=== PATIENT | female | born 1960 | race Caucasian/White ===

== ENCOUNTER 2016-12-26 17:14 | Emergency (ER) | payer MEDICARE ==
[~2016-12-26] VITALS: Ht 165.1 cm; Wt 90.4 kg
[~2016-12-26 17:14] MED LIST: FLUO40CA7 PO; LAMO100T7 PO; TOPI25TA37 PO; TRAM50TA4 PO
[2016-12-26 17:16] VITALS: Ht 165.1 cm; Wt 90.4 kg
--- OUTSIDE RECORDS SUMMARY | 2016-12-26 17:18 | XMS REPORT ---
Author Author Kath Rios Organization [employer] Address Unknown Phone Unavailable Care Team Providers Care Industrial Relations Director Name Role Phone Kath Rios CP Unavailable Allergies No Known Allergies Problems Problem Type Condition ICD-9 Code Onset Dates Condition Status Problem COPD 496 Active Assessment Unspecified epilepsy without mention of intractable epilepsy 345.90 Active Problem Lumbago 724.2 Active Medications Medication Code System Code Instructions Start Date End Date Status Dosage Multivitamins [facility] [address]-09 Orally as directed Tramadol HCl [facility] [address]-87 50MG Orally BID January 03, 2015 TAKE ONE TABLET BY MOUTH TWICE DAILY NEEDED FOR PAIN Triamcinolone Acetonide [facility] [address]-44 0.025 % Externally Twice a day November 10, 2013 1 application to affected area ProAir HFA [facility] [address]-36 108 (90 Base) MCG/ACT Inhalation every 4 hrs November 11, 2012 2 puffs as needed Wellbutrin XL [facility] [address]-95 150 MG Orally Once a day 1 tablet in the morning Lamotrigine [facility] [address]-12 200 MG Orally twice a day 1 tablet Albuterol Sulfate HFA [facility] [address]-35 108 (90 Base) MCG/ACT Inhalation every 4 hrs 2 puffs as needed Zoloft [facility] [address]-80 100 MG Orally Once a day 1 tablet Procedures Procedure Coding System Code Date CMP CPT-4 80607 November 22, 2014 Results No Known Results Summary Purpose [employer] Submission
--- OUTSIDE RECORDS SUMMARY | 2016-12-26 17:18 | XMS REPORT ---
Author Cara Duran Organization [employer] Address Unknown Phone Unavailable Care Team Providers Care Poker Machine Attendant Name Role Phone Cara Calero CP Unavailable Allergies, Adverse Reactions, Alerts Substance Reaction Event Type milk Info Not Available Non Drug Allergy Problems Problem Type Condition Code Onset Dates Condition Status Problem COPD 496 Active Problem Depressive disorder, not elsewhere classified F32.9 Active Problem Lumbago 724.2 Active Assessment Major depressive disorder, recurrent, moderate F33.1 Active Assessment Encounter for consultation Z71.9 Active Medications Medication Code System Code Instructions Start Date End Date Status Dosage Tramadol HCl [facility] [address]-73 not defined Multivitamins [facility] [address]-17 Orally as directed Tramadol HCl [facility] [address]-39 50 MG Orally every 6 hrs Jul 03, 2016 1 tablet as needed ProAir HFA [facility] [address]-42 108 (90 Base) MCG/ACT Inhalation every 4 hrs November 11, 2012 2 puffs as needed DuoNeb [facility] [address]-15 0.5-2.5 (3) MG/3ML Inhalation Four times a day December 06, 2014 3 ml Zoloft [facility] [address]-86 100 MG Orally Once a day 1 tablet Aricept [facility] [address]-80 not defined Lamotrigine [facility] [address]-80 200 MG Orally Once a day 1 tablet Results No Known Results Summary Purpose [employer]Works Submission
--- OUTSIDE RECORDS SUMMARY | 2016-12-26 17:18 | XMS REPORT ---
Author Kath Hayden [facility] [employer] Address Unknown Phone Unavailable Care Team Providers Care Fruit Or Nut Farmer Name Role Phone Kath Rios CP Unavailable Allergies, Adverse Reactions, Alerts Substance Reaction Event Type milk Info Not Available Non Drug Allergy Problems Problem Type Condition ICD-9 Code Onset Dates Condition Status Problem COPD 496 Active Assessment Pain in joint, lower leg 719.46 Active Problem Lumbago 724.2 Active Medications Medication Code System Code Instructions Start Date End Date Status Dosage Wellbutrin XL [facility] [address]-99 150 MG Orally Once a day 1 tablet in the morning Triamcinolone Acetonide [facility] [address]-15 0.025 % Externally Twice a day November 10, 2013 1 application to affected area Albuterol Sulfate A [facility] [address]-90 108 (90 Base) MCG/ACT Inhalation every 4 hrs 2 puffs as needed Topamax [facility] [address]-43 25 MG Orally prn tremor not defined Lamotrigine [facility] [address]-35 200 MG Orally Once a day 1 tablet ProAir HFA [facility] [address]-92 108 (90 Base) MCG/ACT Inhalation every 4 hrs November 11, 2012 2 puffs as needed Diclofenac Sodium [facility] [address]-67 50 MG Orally Three times a day JanuaryMarch 29, 2015 1 tablet Tramadol HCl [facility] [address]-44 50MG Orally TID March 29, 2015 take one tablet by mouth twice daily as needed for pain DuoNeb [facility] [address]-69 0.5-2.5 (3) MG/3ML Inhalation Four times a day December 06, 2014 3 ml Multivitamins [facility] [address]-73 Orally as directed Zoloft [facility] [address]-37 100 MG Orally Once a day 1 tablet Procedures Procedure Coding System Code Date OFFICE VISIT, EST-LOW COMPLEXITY (15 MIN.) CPT-4 85298 February 27, 2015 [facility] visit Established Patient CPT-4 G0467 February 27, 2015 Vital Signs Date/Time: February 27, 2015 Height 63 in Weight 218 lbs Temperature 98.3 F Blood Pressure Diastolic 76 mm Hg Blood Pressure Systolic 118 mm Hg Cardiac Monitoring Heart Rate 88 /min BMI 38.61 Index Respiratory Rate 16 /min Results No Known Results Summary Purpose [employer]ClinicalWorks Submission
--- OUTSIDE RECORDS SUMMARY | 2016-12-26 17:19 | XMS REPORT ---
Author Author Kath Rios Organization [employer] Address Unknown Phone Unavailable Care Team Providers Care Videotape Editor Name Role Phone Kath Rios CP Unavailable Allergies No Known Allergies Problems Problem Type Condition ICD-9 Code Onset Dates Condition Status Problem COPD 496 Active Problem Lumbago 724.2 Active Medications No Known Medications Results No Known Results Summary Purpose [employer]Works Submission
--- OUTSIDE RECORDS SUMMARY | 2016-12-26 17:19 | XMS REPORT ---
Author Author Serena Wild Organization [employer] Address Unknown Phone Unavailable Care Team Providers Care Envelope Maker Name Role Phone Serena Wild CP Unavailable Allergies No Known Allergies Problems Problem Type Condition Code Onset Dates Condition Status Problem COPD 496 Active Problem Depressive disorder, not elsewhere classified F32.9 Active Problem Lumbago 724.2 Active Medications Medication Code System Code Instructions Start Date End Date Status Dosage Tramadol HCl [facility] [address]-32 50 MG Orally tid Aug 21, 2016 1 tablet as needed Results No Known Results Summary Purpose [employer]ClinicalWorks Submission
--- OUTSIDE RECORDS SUMMARY | 2016-12-26 17:19 | XMS REPORT ---
Author Author Kath Rios Organization [employer] Address Unknown Phone Unavailable Care Team Providers Care Die Designer Apprentice Name Role Phone Kath Rios CP Unavailable Allergies No Known Allergies Problems Problem Type Condition ICD-9 Code Onset Dates Condition Status Problem COPD 496 Active Assessment Unspecified epilepsy without mention of intractable epilepsy 345.90 Active Problem Lumbago 724.2 Active Medications Medication Code System Code Instructions Start Date End Date Status Dosage Multivitamins [facility] [place] [address]-22 Orally as directed ProAir HFA [facility] [address]-33 108 (90 Base) MCG/ACT Inhalation every 4 hrs November 11, 2012 2 puffs as needed Tramadol HCl [facility] [place] [address]-37 50MG Orally BID January 03, 2015 TAKE ONE TABLET BY MOUTH TWICE DAILY NEEDED FOR PAIN Zoloft [facility] [place] [address]-41 100 MG Orally Once a day 1 tablet Lamotrigine [facility] [place] [address]-08 200 MG Orally twice a day 1 tablet Wellbutrin XL [facility] [place] [address]-71 150 MG Orally Once a day 1 tablet in the morning Albuterol Sulfate A [facility] [place] [address]-76 108 (90 Base) MCG/ACT Inhalation every 4 hrs 2 puffs as needed Triamcinolone Acetonide [facility] [place] [address]-72 0.025 % Externally Twice a day November 10, 2013 1 application to affected area Procedures Procedure Coding System Code Date LAMOTRIGINE CPT-4 93923 November 22, 2014 COMPLETE CBC W/AUTO DIFF WBC CPT-4 40590 November 22, 2014 Results No Known Results Summary Purpose [employer]ClinicalWorks Submission
--- OUTSIDE RECORDS SUMMARY | 2016-12-26 17:19 | XMS REPORT ---
Author Author Serena Wild Organization [employer] Address Unknown Phone Unavailable Care Team Providers Care Supply Chain Business Analyst Name Role Phone Serena Wild CP Unavailable Allergies No Known Allergies Problems Problem Type Condition Code Onset Dates Condition Status Problem COPD 496 Active Problem Depressive disorder, not elsewhere classified 311 Active Problem Lumbago 724.2 Active Medications No Known Medications Results No Known Results Summary Purpose [employer]Works Submission
--- OUTSIDE RECORDS SUMMARY | 2016-12-26 17:19 | XMS REPORT ---
Author Author Kath Rios Organization [employer] Address Unknown Phone Unavailable Care Team Providers Care Fire Operations Forester Name Role Phone Kath Rios CP Unavailable Allergies No Known Allergies Problems Problem Type Condition ICD-9 Code Onset Dates Condition Status Problem COPD 496 Active Assessment Dizziness and giddiness 780.4 Active Problem Lumbago 724.2 Active Medications Medication Code System Code Instructions Start Date End Date Status Dosage Zoloft [facility] [address]-16 100 MG Orally Once a day 1 tablet Triamcinolone Acetonide [facility] [address]-34 0.025 % Externally Twice a day November 10, 2013 1 application to affected area Topamax [facility] [address]-80 25 MG Orally prn tremor not defined ProAir HFA [facility] [address]-81 108 (90 Base) MCG/ACT Inhalation every 4 hrs November 11, 2012 2 puffs as needed Lamotrigine [facility] [address]-36 200 MG Orally Once a day 1 tablet Wellbutrin XL [facility] [address]-93 150 MG Orally Once a day 1 tablet in the morning Albuterol Sulfate HFA [facility] [address]-84 108 (90 Base) MCG/ACT Inhalation every 4 hrs 2 puffs as needed DuoNeb [facility] [address]-52 0.5-2.5 (3) MG/3ML Inhalation Four times a day December 06, 2014 3 ml Multivitamins [facility] [address]-11 Orally as directed Procedures Procedure Coding System Code Date COMPLETE CBC W/AUTO DIFF WBC CPT-4 88223 May 09, 2015 Results No Known Results Summary Purpose [employer]ClinicalWorks Submission
--- OUTSIDE RECORDS SUMMARY | 2016-12-26 17:19 | XMS REPORT ---
Author Author Serena Wild Organization [employer] Address Unknown Phone Unavailable Care Team Providers Care Staff Physical Therapist Name Role Phone Serena Wild CP Unavailable Allergies No Known Allergies Problems Problem Type Condition Code Onset Dates Condition Status Problem COPD 496 Active Problem Depressive disorder, not elsewhere classified F32.9 Active Problem Lumbago 724.2 Active Medications No Known Medications Results No Known Results Summary Purpose [employer]ClinicalWorks Submission
--- OUTSIDE RECORDS SUMMARY | 2016-12-26 17:19 | XMS REPORT ---
Author Author Kath Rios Organization [employer] Address Unknown Phone Unavailable Care Team Providers Care Trust Vault Clerk Name Role Phone Kath Rios CP Unavailable Allergies No Known Allergies Problems Problem Type Condition Code Onset Dates Condition Status Problem COPD 496 Active Problem Lumbago 724.2 Active Medications Medication Code System Code Instructions Start Date End Date Status Dosage DuoNeb [facility] [address]-44 0.5-2.5 (3) MG/3ML Inhalation Four times a day December 06, 2014 3 ml Results No Known Results Summary Purpose [employer]ClinicalWorks Submission
--- OUTSIDE RECORDS SUMMARY | 2016-12-26 17:19 | XMS REPORT ---
Author Author Kath Rios Organization [employer] Address Unknown Phone Unavailable Care Team Providers Care Refuse Driver Name Role Phone Kath Rios CP Unavailable Allergies No Known Allergies Problems Problem Type Condition Code Onset Dates Condition Status Problem COPD 496 Active Problem Lumbago 724.2 Active Medications Medication Code System Code Instructions Start Date End Date Status Dosage Tramadol HCl [facility] [address]-91 50MG Orally BID Apr 04, 2015 TAKE ONE TABLET BY MOUTH TWICE DAILY NEEDED FOR PAIN Results No Known Results Summary Purpose [employer]ClinicalWorks Submission
--- OUTSIDE RECORDS SUMMARY | 2016-12-26 17:19 | XMS REPORT ---
Author Author Serena Wild Organization [employer] Address Unknown Phone Unavailable Care Team Providers Care Relationship Executive Name Role Phone Serena Wild CP Unavailable Allergies No Known Allergies Problems Problem Type Condition Code Onset Dates Condition Status Problem COPD 496 Active Problem Depressive disorder, not elsewhere classified 311 Active Problem Lumbago 724.2 Active Assessment Low back pain M54.5 Active Medications Medication Code System Code Instructions Start Date End Date Status Dosage DuoNeb [facility] [address]-45 0.5-2.5 (3) MG/3ML Inhalation Four times a day December 06, 2014 3 ml ProAir HFA [facility] [address]-38 108 (90 Base) MCG/ACT Inhalation every 4 hrs November 11, 2012 2 puffs as needed Topamax [facility] [address]-41 25 MG Orally prn tremor not defined Albuterol Sulfate HFA [facility] [address]-21 108 (90 Base) MCG/ACT Inhalation every 4 hrs 2 puffs as needed Multivitamins [facility] [address]-24 Orally as directed Tramadol HCl [facility] [address]-95 50 MG Orally every 6 hrs Jun 01, 2016 1 tablet as needed Zoloft [facility] [address]-59 100 MG Orally Once a day 1 tablet Lamotrigine [facility] [address]-63 200 MG Orally Once a day 1 tablet Results No Known Results Summary Purpose eClinicalWorks Submission
--- OUTSIDE RECORDS SUMMARY | 2016-12-26 17:19 | XMS REPORT ---
Author Author Kath Rios Organization [employer] Address Unknown Phone Unavailable Care Team Providers Care Anatomy Teacher Name Role Phone Kath Rios CP Unavailable Allergies No Known Allergies Problems Problem Type Condition Code Onset Dates Condition Status Problem COPD 496 Active Problem Depressive disorder, not elsewhere classified 311 Active Problem Lumbago 724.2 Active Medications No Known Medications Results No Known Results Summary Purpose [employer]ClinicalWorks Submission
--- OUTSIDE RECORDS SUMMARY | 2016-12-26 17:19 | XMS REPORT ---
Author Author Kath Rios Organization [employer] Address Unknown Phone Unavailable Care Team Providers Care Building Construction Engineer Name Role Phone Kath Rios CP Unavailable Allergies No Known Allergies Problems Problem Type Condition ICD-9 Code Onset Dates Condition Status Problem COPD 496 Active Problem Lumbago 724.2 Active Medications Medication Code System Code Instructions Start Date End Date Status Dosage Albuterol Sulfate [facility] [address]-49 108 (90 Base) MCG/ACT Inhalation every 4 hrs 2 puffs as needed Results No Known Results Summary Purpose eClinicalWorks Submission
--- OUTSIDE RECORDS SUMMARY | 2016-12-26 17:19 | XMS REPORT ---
Author Author Kath Rios Organization [employer] Address Unknown Phone Unavailable Care Team Providers Care Drill Grinder Name Role Phone Kath Rios CP Unavailable Allergies No Known Allergies Problems Problem Type Condition ICD-9 Code Onset Dates Condition Status Problem COPD 496 Active Problem Lumbago 724.2 Active Medications No Known Medications Results No Known Results Summary Purpose eClinicalWorks Submission
--- OUTSIDE RECORDS SUMMARY | 2016-12-26 17:19 | XMS REPORT ---
Author Author Serena Wild Organization [employer] Address Unknown Phone Unavailable Care Team Providers Care Cranberry Sorter Name Role Phone Serena Wild CP Unavailable Allergies No Known Allergies Problems Problem Type Condition Code Onset Dates Condition Status Problem COPD 496 Active Problem Depressive disorder, not elsewhere classified 311 Active Problem Lumbago 724.2 Active Medications Medication Code System Code Instructions Start Date End Date Status Dosage Tramadol HCl [facility] [address]-50 50 MG Orally three times a day May 09, 2015 Aug 23, 2015 1 tablet as needed Results No Known Results Summary Purpose eClinicalWorks Submission
--- OUTSIDE RECORDS SUMMARY | 2016-12-26 17:19 | XMS REPORT ---
Author Author Serena Wild Organization [employer] Address Unknown Phone Unavailable Care Team Providers Care Low Emission Automobile Designer Name Role Phone Serena Wild CP Unavailable Allergies, Adverse Reactions, Alerts Substance Reaction Event Type milk Info Not Available Non Drug Allergy Problems Problem Type Condition Code Onset Dates Condition Status Problem COPD 496 Active Problem Depressive disorder, not elsewhere classified F32.9 Active Problem Lumbago 724.2 Active Assessment Depressive disorder, not elsewhere classified F32.9 Active Assessment Low back pain M54.5 Active Medications Medication Code System Code Instructions Start Date End Date Status Dosage DuoNeb [facility] [address]-23 0.5-2.5 (3) MG/3ML Inhalation Four times a day December 06, 2014 3 ml ProAir HFA [facility] [address]-71 108 (90 Base) MCG/ACT Inhalation every 4 hrs November 11, 2012 2 puffs as needed Tramadol HCl [facility] [address]-77 50 MG Orally every 6 hrs Jul 03, 2016 1 tablet as needed Aricept [facility] [address]-73 not defined Tramadol HCl [facility] [address]-31 not defined Lamotrigine [facility] [address]-33 200 MG Orally Once a day [address] [facility] [address]-95 100 MG Orally Once a day 1 tablet Multivitamins [facility] [address]-77 Orally as directed Procedures Procedure Coding System Code Date OFFICE VISIT, EST-LOW COMPLEXITY (15 MIN.) CPT-4 97255 Jun 03, 2016 [facility] visit Established Patient CPT-4 G0467 Jun 03, 2016 Vital Signs Date/Time: Jun 03, 2016 Temperature 98.1 F Height 63 in Weight 213.8 lbs Blood Pressure Diastolic 68 mm Hg Blood Pressure Systolic 118 mm Hg Cardiac Monitoring Heart Rate 72 /min BMI 37.87 Index Oximetry 98 % Respiratory Rate 16 /min Results No Known Results Summary Purpose eClinicalWorks Submission
--- OUTSIDE RECORDS SUMMARY | 2016-12-26 17:19 | XMS REPORT ---
Author Author Serena Wild Organization [employer] Address Unknown Phone Unavailable Care Team Providers Care Gun Repair Clerk Name Role Phone Serena Wild CP Unavailable Allergies No Known Allergies Problems Problem Type Condition Code Onset Dates Condition Status Problem COPD 496 Active Problem Depressive disorder, not elsewhere classified F32.9 Active Problem Lumbago 724.2 Active Medications Medication Code System Code Instructions Start Date End Date Status Dosage Tramadol HCl [facility] [address]-40 50 MG Orally BID Aug 03, 2016 1 tablet as needed Results No Known Results Summary Purpose eClinicalWorks Submission
--- OUTSIDE RECORDS SUMMARY | 2016-12-26 17:19 | XMS REPORT ---
Author Author Serena Wild Organization [employer] Address Unknown Phone Unavailable Care Team Providers Care Scrap Materials Buyer Name Role Phone Serena Wild CP Unavailable Allergies No Known Allergies Problems Problem Type Condition Code Onset Dates Condition Status Problem COPD 496 Active Problem Depressive disorder, not elsewhere classified 311 Active Problem Lumbago 724.2 Active Medications Medication Code System Code Instructions Start Date End Date Status Dosage Tramadol HCl [facility] [address]-80 50 MG Orally three times a day May 09, 2015 Sep 23, 2015 1 tablet as needed Results No Known Results Summary Purpose eClinicalWorks Submission
--- OUTSIDE RECORDS SUMMARY | 2016-12-26 17:19 | XMS REPORT ---
Author Author Serena Wild Organization [employer] Address Unknown Phone Unavailable Care Team Providers Care Nutritional Services Cook Name Role Phone Serena Wild CP Unavailable Allergies, Adverse Reactions, Alerts Substance Reaction Event Type milk Info Not Available Non Drug Allergy Problems Problem Type Condition Code Onset Dates Condition Status Problem COPD 496 Active Problem Depressive disorder, not elsewhere classified 311 Active Problem Lumbago 724.2 Active Assessment Low back pain M54.5 Active Assessment Encounter for removal of sutures Z48.02 Active Medications Medication Code System Code Instructions Start Date End Date Status Dosage ProAir HFA [facility] [address]-21 108 (90 Base) MCG/ACT Inhalation every 4 hrs November 11, 2012 2 puffs as needed DuoNeb [facility] [address]-95 0.5-2.5 (3) MG/3ML Inhalation Four times a day December 06, 2014 3 ml Topamax [facility] [address]-58 25 MG Orally prn tremor not defined Multivitamins [facility] [address]-45 Orally as directed Albuterol Sulfate HFA [facility] [address]-11 108 (90 Base) MCG/ACT Inhalation every 4 hrs 2 puffs as needed Zoloft [facility] [address]-91 100 MG Orally Once a day 1 tablet Tramadol HCl [facility] [address]-51 50 MG Orally three times a day May 09, 2015 Jun 18, 2015 1 tablet as needed Lamotrigine [facility] [address]-85 200 MG Orally Once a day 1 tablet Procedures Procedure Coding System Code Date OFFICE VISIT, ACID BLEACHER-LOW COMPLEXITY (30 MIN.) CPT-4 87313 Jun 12, 2015 [facility] visit New Patient CPT-4 G0466 Jun 12, 2015 Vital Signs Date/Time: Jun 12, 2015 Height 63 in Weight 216.4 lbs Temperature 98.1 F Blood Pressure Diastolic 62 mm Hg Blood Pressure Systolic 108 mm Hg Cardiac Monitoring Heart Rate 88 /min BMI 38.33 Index Respiratory Rate 18 /min Results No Known Results Summary Purpose eClinicalWorks Submission
--- OUTSIDE RECORDS SUMMARY | 2016-12-26 17:19 | XMS REPORT ---
Author Author Gerri Grant Organization [employer] Address Unknown Phone Unavailable Care Team Providers Care Retail Cashier Associate Name Role Phone Gerri Grant CP Unavailable Allergies, Adverse Reactions, Alerts Substance Reaction Event Type milk Info Not Available Non Drug Allergy Problems Problem Type Condition Code Onset Dates Condition Status Problem COPD 496 Active Problem Depressive disorder, not elsewhere classified F32.9 Active Problem Lumbago 724.2 Active Assessment Wheezing R06.2 Active Assessment Sore throat J02.9 Active Assessment Acute non-recurrent maxillary sinusitis J01.00 Active Medications Medication Code System Code Instructions Start Date End Date Status Dosage Tramadol HCl [facility] [address]-25 not defined ProAir HFA [facility] [address]-24 108 (90 Base) MCG/ACT Inhalation every 4 hrs November 11, 2012 2 puffs as needed DuoNeb [facility] [address]-54 0.5-2.5 (3) MG/3ML Inhalation Four times a day December 06, 2014 3 ml Tramadol HCl [facility] [address]-82 50 MG Orally every 6 hrs Jul 03, 2016 1 tablet as needed Multivitamins [facility] [address]-39 Orally as directed Lamotrigine [facility] [address]-12 200 MG Orally Once a day 1 tablet Zoloft [facility] [address]-46 100 MG Orally Once a day 1 tablet Amoxicillin [facility] [address]-23 875 MG Orally Twice a day Jun 18, 2016 Jun 25, 2016 1 tablet Aricept [facility] [address]-99 not defined Procedures Procedure Coding System Code Date OFFICE VISIT, EST-LOW COMPLEXITY (15 MIN.) CPT-4 20185 Jun 18, 2016 [facility] visit Established Patient CPT-4 G0467 Jun 18, 2016 Vital Signs Date/Time: Jun 18, 2016 Temperature 98.4 F Height 63 in Weight 214.8 lbs Blood Pressure Diastolic 78 mm Hg Blood Pressure Systolic 132 mm Hg Cardiac Monitoring Heart Rate 86 /min BMI 38.05 Index Oximetry 98 % Results No Known Results Summary Purpose [employer] Submission
--- OUTSIDE RECORDS SUMMARY | 2016-12-26 17:19 | XMS REPORT ---
Author Author Kath Rios Organization [employer] Address Unknown Phone Unavailable Care Team Providers Care Engineering Professor Name Role Phone Kath Rios CP Unavailable Allergies No Known Allergies Problems Problem Type Condition ICD-9 Code Onset Dates Condition Status Problem COPD 496 Active Problem Lumbago 724.2 Active Medications No Known Medications Results No Known Results Summary Purpose [employer] Submission
--- OUTSIDE RECORDS SUMMARY | 2016-12-26 17:19 | XMS REPORT ---
Author Author Kath Rios [facility] [employer] Address Unknown Phone Unavailable Care Team Providers Care Impregnating Machine Operator Name Role Phone Kath Rios CP Unavailable Allergies, Adverse Reactions, Alerts Substance Reaction Event Type milk Info Not Available Non Drug Allergy Problems Problem Type Condition Code Onset Dates Condition Status Problem COPD 496 Active Problem Depressive disorder, not elsewhere classified 311 Active Problem Lumbago 724.2 Active Assessment Dizziness and giddiness 780.4 Active Assessment Muscle weakness (generalized) 728.87 Active Assessment Depressive disorder, not elsewhere classified 311 Active Medications Medication Code System Code Instructions Start Date End Date Status Dosage ProAir HFA [facility] [address]-61 108 (90 Base) MCG/ACT Inhalation every 4 hrs November 11, 2012 2 puffs as needed Zoloft [facility] [address]-22 100 MG Orally Once a day 1 tablet Wellbutrin XL [facility] [address]-91 150 MG Orally Once a day 1 tablet in the morning DuoNeb [facility] [address]-37 0.5-2.5 (3) MG/3ML Inhalation Four times a day December 06, 2014 3 ml Lamotrigine [facility] [address]-24 200 MG Orally Once a day 1 tablet Albuterol Sulfate HFA [facility] [address]-00 108 (90 Base) MCG/ACT Inhalation every 4 hrs 2 puffs as needed Topamax [facility] [address]-89 25 MG Orally prn tremor not defined Triamcinolone Acetonide [facility] [address]-45 0.025 % Externally Twice a day November 10, 2013 1 application to affected area Multivitamins [facility] [address]-63 Orally as directed Procedures Procedure Coding System Code Date [facility] visit Established Patient CPT-4 G0467 May 09, 2015 OFFICE VISIT, EST-LOW COMPLEXITY (15 MIN.) CPT-4 83017 May 09, 2015 [facility] CMP CPT-4 32168 May 09, 2015 Vital Signs Date/Time: May 09, 2015 Height 63 in Weight 221.8 lbs Temperature 97.9 F Blood Pressure Diastolic 82 mm Hg Blood Pressure Systolic 120 mm Hg Cardiac Monitoring Heart Rate 68 /min BMI 39.29 Index Respiratory Rate 24 /min Results No Known Results Summary Purpose [employer] Submission
--- OUTSIDE RECORDS SUMMARY | 2016-12-26 17:19 | XMS REPORT ---
Author Author Kath Rios Organization [employer] Address Unknown Phone Unavailable Care Team Providers Care Inclusion Specialist Name Role Phone Kath Rios CP Unavailable Allergies No Known Allergies Problems Problem Type Condition ICD-9 Code Onset Dates Condition Status Problem COPD 496 Active Problem Lumbago 724.2 Active Medications No Known Medications Results No Known Results Summary Purpose [employer] Submission
--- OUTSIDE RECORDS SUMMARY | 2016-12-26 17:19 | XMS REPORT ---
Author Author Serena Wild Organization [employer] Address Unknown Phone Unavailable Care Team Providers Care Medical Record Administrator Name Role Phone Serena Wild CP Unavailable Allergies No Known Allergies Problems Problem Type Condition Code Onset Dates Condition Status Problem COPD 496 Active Problem Depressive disorder, not elsewhere classified F32.9 Active Problem Lumbago 724.2 Active Medications No Known Medications Results No Known Results Summary Purpose [employer] Submission
--- OUTSIDE RECORDS SUMMARY | 2016-12-26 17:19 | XMS REPORT ---
Author Author Serena Wild Organization [employer] Address Unknown Phone Unavailable Care Team Providers Care Visual Aid Expert Name Role Phone Serena Wild CP Unavailable Allergies No Known Allergies Problems Problem Type Condition Code Onset Dates Condition Status Problem COPD 496 Active Problem Depressive disorder, not elsewhere classified 311 Active Problem Lumbago 724.2 Active Medications No Known Medications Results No Known Results Summary Purpose [employer] Submission
--- OUTSIDE RECORDS SUMMARY | 2016-12-26 17:19 | XMS REPORT ---
Author Author Gerri Grant Organization [employer] Address Unknown Phone Unavailable Care Team Providers Care Cocoa Powder Mixer Operator Name Role Phone Gerri Grant CP Unavailable Allergies, Adverse Reactions, Alerts Substance Reaction Event Type milk Info Not Available Non Drug Allergy Problems Problem Type Condition Code Onset Dates Condition Status Problem COPD 496 Active Problem Depressive disorder, not elsewhere classified F32.9 Active Problem Lumbago 724.2 Active Assessment Acute suppurative otitis media of right ear without spontaneous rupture of tympanic membrane, recurrence not specified H66.001 Active Medications Medication Code System Code Instructions Start Date End Date Status Dosage Multivitamins [facility] [address]-28 Orally as directed Lamotrigine [facility] [place] 2[facility] [address]-76 200 MG Orally Once a day 1 tablet Zoloft [facility] [place] 2] [address]-86 100 MG Orally Once a day 1 tablet DuoNeb [facility]NOTE 2] [address]-68 0.5-2.5 (3) MG/3ML Inhalation Four times a day December 06, 2014 3 ml Aricept [facility] [place] 2[facility] [address]-86 not defined Tramadol HCl [facility] [place] 2] [address]-42 50 MG Orally tid Aug 21, 2016 1 tablet as needed Zithromax Z-Juan [facility] [place]NOTE 2] [address]-11 250 MG Orally Once a day Jul 30, 2016 Aug 04, 2016 2 tablets on the first day, then 1 tablet daily for 4 days ProAir HFA [facility] [place]NOTE 2] [address]-77 108 (90 Base) MCG/ACT Inhalation every 4 hrs November 11, 2012 2 puffs as needed Procedures Procedure Coding System Code Date OFFICE VISIT, EST-LOW COMPLEXITY (15 MIN.) CPT-4 66543 Jul 30, 2016 [facility] visit Established Patient CPT-4 G0467 Jul 30, 2016 Vital Signs Date/Time: Jul 30, 2016 Temperature 98.2 F Height 63 in Weight 210 lbs Blood Pressure Diastolic 72 mm Hg Blood Pressure Systolic 116 mm Hg Cardiac Monitoring Heart Rate 81 /min BMI 37.20 Index Oximetry 98 % Respiratory Rate 16 /min Results No Known Results Summary Purpose [employer]ClinicalWorks Submission
--- OUTSIDE RECORDS SUMMARY | 2016-12-26 17:19 | XMS REPORT | Referral Summary ---
Author Author Via MANOH[facility] Mcallister [place], [facility] Care Organization [facility] Address Unknown Phone Unavailable Care Team Providers Care Electric Organ Assembler Name Role Phone No PCP, Pt States Primary Care Physician [phone] Encounter Date(s): 05/15/16 - 05/15/16 [facility] Mcallister [place], [address] [place] [id number] Discharge Diagnosis: Nausea and vomiting Discharge Diagnosis: BPV (benign positional vertigo) Discharge Diagnosis: Acute URI Discharge Disposition: -Home or Self Care Attending Physician: Joey Balbuena PA-C Admitting Physician: Joey Balbuena PA-C Vital Signs Most recent to 1 oldest [Reference Range]: Temperature Tympanic 35.2 degC [36.6-38.1 degC] *LOW* (05/15/16 3:46 PM) Peripheral Pulse 73 bpm Rate [60-100 bpm] (05/15/16 3:46 PM) Blood Pressure 164/106 mmHg [90-140/60-90 mmHg] *HI* (05/15/16 3:46 PM) SpO2 96 % (05/15/16 3:46 PM) Problem List Condition Effective Dates Status Health Status Informant COPD (chronic Active obstructive pulmonary disease)(Confirmed) Epilepsy(Confirmed) Active Obesity(Confirmed) Active patient Allergies, Adverse Reactions, Alerts No Known Allergies Medications Aricept Oral, Bedtime (once a day), 0 Refill(s) Start Date: 05/15/16 Status: Ordered lamoTRIgine 200 mg oral tablet mg tabs, Oral, BID, 0 Refill(s) Start Date: 05/15/16 Status: Ordered meclizine 25 mg oral tablet 25 mg 1 tabs, Oral, QID, X 10 days, # 40 tabs, 0 Refill(s), Pharmacy: [place], [facility], 1 tabs Oral QID,x10 days Start Date: 05/15/16 Stop Date: 05/25/16 Status: Ordered traMADol 50 mg oral tablet mg tabs, Oral, q4hr, 0 Refill(s) Start Date: 05/15/16 Status: Ordered Ventolin HFA puffs, Inhalation, QID, 0 Refill(s) Start Date: 05/15/16 Status: Ordered Zofran 4 mg oral tablet 4 mg 1 tabs, Oral, q8hr, # 6 tabs, 0 Refill(s), Pharmacy: [place], [facility], 1 tabs Oral q8hr,x2 days Start Date: 05/15/16 Stop Date: 05/17/16 Status: Ordered Results No data available for this section Immunizations No data available for this section Procedures No data available for this section Social History Social History Type Response Smoking Status Former smoker; Type: Cigarettes; Date Last Use: 1 year Assessment and Plan Extracted from: Title: dizzy uri Author: Joey Balbuena PA-C Date: 05/15/16 Assessment/Plan 1.BPV (benign positional vertigo) Nigel exercises were provided for the patient. Also meclizine prescriptionto take as needed for dizziness. Ordered: meclizine, 25 mg 1 tabs, Oral, QID, X 10 days, # 40 tabs, 0 Refill(s), Pharmacy : [place], [facility], 1 tabs Oral QID,x10 days ondansetron, 4 mg 1 tabs, Oral, q8hr, # 6 tabs, 0 Refill(s), Pharmacy: [facility], 1 tabs Oral q8hr,x2 days 2.Nausea and vomiting Zofran set 4 mg given sublingual in office was providedand prescription for milligram every 8 hours as needed for nausea and vomiting for the next 2-3 days. The patient unable to keep down fluids, decreased urination,follow-up in ER for additional assessmentpossible rehydration. Ordered: meclizine, 25 mg 1 tabs, Oral, QID, X 10 days, # 40 tabs, 0 Refill(s), Pharmacy : [facility], 1 tabs Oral QID,x10 days ondansetron, 4 mg 1 tabs, Oral, q8hr, # 6 tabs, 0 Refill(s), [facility]: [facility], 1 tabs Oral q8hr,x2 days 3.Acute URI Recommend supportive care. Rest. Practice good hand hygiene. Increase fluids. Albuterolwith albuterol inhalerTylenol as needed for fever or pain. FU with PCP if not improving, worsening symptoms, or as needed. Questions were answered. Patient verbalized understanding. Patient left in stable condition. Ordered: meclizine, 25 mg 1 tabs, Oral, QID, X 10 days, # 40 tabs, 0 Refill(s), Pharmacy : [facility], 1 tabs Oral QID,x10 days ondansetron, 4 mg 1 tabs, Oral, q8hr, # 6 tabs, 0 Refill(s), [facility]acy: [facility], 1 tabs Oral q8hr,x2 days
--- OUTSIDE RECORDS SUMMARY | 2016-12-26 17:19 | XMS REPORT ---
Author Author Cara Calero [employer] Address Unknown Phone Unavailable Care Team Providers Care Plasma Processing Technician Name Role Phone Cara Calero Unavailable Allergies No Known Allergies Problems Problem Type Condition Code Onset Dates Condition Status Problem COPD 496 Active Problem Depressive disorder, not elsewhere classified F32.9 Active Problem Lumbago 724.2 Active Assessment Major depressive disorder, recurrent, moderate F33.1 Active Assessment Encounter for consultation Z71.9 Active Medications Medication Code System Code Instructions Start Date End Date Status Dosage Tramadol HCl [facility] [address]-58 not defined Aricept [facility] [address]-55 not defined Tramadol HCl [facility] [address]-98 50 MG Orally every 6 hrs Jul 03, 2016 1 tablet as needed DuoNeb [facility] [address]-24 0.5-2.5 (3) MG/3ML Inhalation Four times a day December 06, 2014 3 ml Zoloft [facility] [address]-71 100 MG Orally Once a day 1 tablet ProAir HFA [facility] [address]-03 108 (90 Base) MCG/ACT Inhalation every 4 hrs November 11, 2012 2 puffs as needed Multivitamins [facility] [address]-10 Orally as directed Lamotrigine [facility] [address]-11 200 MG Orally Once a day 1 tablet Results No Known Results Summary Purpose eClinicalWorks Submission
--- OUTSIDE RECORDS SUMMARY | 2016-12-26 17:19 | XMS REPORT ---
Author Author Serena Wild Organization [employer] Address Unknown Phone Unavailable Care Team Providers Care Warm In Name Role Phone Serena Wild CP Unavailable Allergies No Known Allergies Problems Problem Type Condition Code Onset Dates Condition Status Problem COPD 496 Active Problem Depressive disorder, not elsewhere classified 311 Active Problem Lumbago 724.2 Active Medications Medication Code System Code Instructions Start Date End Date Status Dosage Tramadol HCl [facility] [address]-34 50 MG Orally three times a day May 09, 2015 Jul 22, 2015 1 tablet as needed Results No Known Results Summary Purpose [employer]ClinicalWorks Submission
--- OUTSIDE RECORDS SUMMARY | 2016-12-26 17:19 | XMS REPORT ---
Author Author Serena Wild Organization [employer] Address Unknown Phone Unavailable Care Team Providers Care Shield Operator Name Role Phone Serena Wild CP Unavailable Allergies No Known Allergies Problems Problem Type Condition Code Onset Dates Condition Status Problem COPD 496 Active Problem Depressive disorder, not elsewhere classified 311 Active Problem Lumbago 724.2 Active Medications Medication Code System Code Instructions Start Date End Date Status Dosage Tramadol HCl [facility] [address]-84 50 MG Orally three times a day May 09, 2015 Aug 23, 2015 1 tablet as needed Results No Known Results Summary Purpose [employer]ClinicalWorks Submission
--- OUTSIDE RECORDS SUMMARY | 2016-12-26 17:19 | XMS REPORT ---
Author Author Cara Calero [employer] Address Unknown Phone Unavailable Care Team Providers Care Narrow Fabrics Weaver Name Role Phone Cara Calero Unavailable Allergies No Known Allergies Problems Problem Type Condition Code Onset Dates Condition Status Problem COPD 496 Active Problem Depressive disorder, not elsewhere classified F32.9 Active Problem Lumbago 724.2 Active Assessment Major depressive disorder, recurrent, moderate F33.1 Active Assessment Encounter for consultation Z71.9 Active Medications Medication Code System Code Instructions Start Date End Date Status Dosage Lamotrigine [facility] [address]-35 200 MG Orally Once a day 1 tablet Multivitamins [facility] [address]-74 Orally as directed ProAir HFA [facility] [address]-74 108 (90 Base) MCG/ACT Inhalation every 4 hrs November 11, 2012 2 puffs as needed Zoloft [facility] [address]-87 100 MG Orally Once a day 1 tablet Tramadol HCl [facility] [address]-66 50 MG Orally every 6 hrs Jul 03, 2016 1 tablet as needed Aricept [facility] [address]-96 not defined Tramadol HCl [facility] [address]-44 not defined DuoNeb [facility] [address]-55 0.5-2.5 (3) MG/3ML Inhalation Four times a day December 06, 2014 3 ml Results No Known Results Summary Purpose eClinicalWorks Submission
--- OUTSIDE RECORDS SUMMARY | 2016-12-26 17:19 | XMS REPORT ---
Author Author Serena Wild Organization [employer] Address Unknown Phone Unavailable Care Team Providers Care Multi Purpose Machine Operator Name Role Phone Serena Wild CP Unavailable Allergies No Known Allergies Problems Problem Type Condition Code Onset Dates Condition Status Problem COPD 496 Active Problem Depressive disorder, not elsewhere classified 311 Active Problem Lumbago 724.2 Active Medications Medication Code System Code Instructions Start Date End Date Status Dosage Tramadol HCl [facility] [address]-28 50 MG Orally three times a day May 09, 2015 Jun 18, 2015 1 tablet as needed Results No Known Results Summary Purpose eClinicalWorks Submission
--- OUTSIDE RECORDS SUMMARY | 2016-12-26 17:19 | XMS REPORT ---
Author Author Serena Wild Organization [employer] Address Unknown Phone Unavailable Care Team Providers Care Administrative Library Assistant Name Role Phone Serena Wild CP Unavailable Allergies No Known Allergies Problems Problem Type Condition Code Onset Dates Condition Status Problem COPD 496 Active Problem Depressive disorder, not elsewhere classified F32.9 Active Problem Lumbago 724.2 Active Assessment Depressive disorder, not elsewhere classified F32.9 Active Medications Medication Code System Code Instructions Start Date End Date Status Dosage Zoloft [facility] [address]-73 100 MG Orally Once a day 1 tablet Results No Known Results Summary Purpose eClinicalWorks Submission
--- OUTSIDE RECORDS SUMMARY | 2016-12-26 17:19 | XMS REPORT ---
Author Author Gissell Bueno [facility] e[employer] Address Unknown Phone Unavailable Care Team Providers Care Germination Testing Manager Name Role Phone Gissell Bueno CP Unavailable Allergies No Known Allergies Problems Problem Type Condition ICD-9 Code Onset Dates Condition Status Problem COPD 496 Active Problem Lumbago 724.2 Active Medications Medication Code System Code Instructions Start Date End Date Status Dosage Tramadol HCl [facility] [address]-39 50 MG Orally three times a day May 09, 2015 Jun 08, 2015 1 tablet as needed Results No Known Results Summary Purpose eClinicalWorks Submission
--- OUTSIDE RECORDS SUMMARY | 2016-12-26 17:19 | XMS REPORT ---
Author Author Serena Wild Organization [employer] Address Unknown Phone Unavailable Care Team Providers Care Cement Paver Name Role Phone Serena Wild CP Unavailable Allergies No Known Allergies Problems Problem Type Condition Code Onset Dates Condition Status Problem COPD 496 Active Problem Depressive disorder, not elsewhere classified 311 Active Problem Lumbago 724.2 Active Assessment Low back pain M54.5 Active Medications Medication Code System Code Instructions Start Date End Date Status Dosage Tramadol HCl [facility] [address]-05 50 MG Orally every 6 hrs Jun 01, 2016 1 tablet as needed Results No Known Results Summary Purpose eClinicalWorks Submission
[2016-12-26] MEDS ORDERED: SERT100T PO (17:33)
[2016-12-26] MEDS ORDERED: TURM500C8 PO (17:34)
[2016-12-26] MEDS ORDERED: VITA1CAP PO (17:35)
--- NOTE | 2016-12-26 17:59 | NUR ---
REPORT REPORT TO AND CARE ASSUMED BY LIDA ONEAL
--- NOTE | 2016-12-26 18:30 | NUR ---
Imaging Patient out to Imaging
--- NOTE | 2016-12-26 18:44 | NUR ---
Imaging Patient returns
--- NOTE | 2016-12-26 18:56 | ERPDOC ---
Departure Disposition Decision Date: Dec 26, 2016 Disposition Decision Time: 19:50 Disposition: 01 DISCHARGED HOME, SELF-CARE Impression Impression Impression: Primary Impression: Malaise Severity: Mild Condition: Improved Seen By: Physician only Referrals: PIA MARTINES APRN (Family) 1 Day Patient Instructions: Fatigue (ED) Problems/Meds/Labs Reviewed?: Yes Medications reviewed and manag: Yes Follow up care ordered?: Yes Mental Status: Alert, Oriented HPI - General Medical General Chief Complaint: General Stated Complaint: BLURRY VISION,DIZZY, TIRED Time Seen by Provider: 18:15 Source: patient Exam Limitations: no limitations HPI - General Medical Initial Comments 56-year-old female presents to emergency department with a chief complaint of 10 days of slight blurring of vision and feeling light-headed. Patient denies any current pain or discomfort. Patient notes that her symptoms have been constant in nature since onset. She denies any trauma or injury. She denies any recent medication changes. Patient does not note any exacerbating or remitting factors. She was at home when her symptoms began. Symptoms have been persistent in nature since onset. She has not seen her primary care provider for her complaints prior to arrival to the emergency department. Occurred At: home Onset: Constant Allergies: Coded Allergies: niacin (Verified Allergy, Unknown, 12/26/16) "I CAN TAKE IT BUT JUST HAVE TO WATCH HOW MUCH" Past History Past Medical History Metabolic: hypertension Respiratory: COPD Female: UTI, living children Neurological: head injury, seizures Musculoskeletal: back pain Psychological: OD, bipolar, depression, suicide attempt Surgical History General: gallbladder, neck, other Family History Family PMH: FOUND: diabetes Vaccines Hx Influenza Vaccination: No Hx Pneumococcal Vaccination: No Hx Tetanus Diptheria: No Hx Tetanus, Diptheria, Pertuss: Yes (JUNE 2015) Social History Smoking Status: Never smoker Substance Use Type: does not use Alcohol Intake: none Review of Systems Constitutional Constitutional: DENIES: chills, fever Eyes General: DENIES: erythema, exudate Lids/Accessories: DENIES: erythema, swelling Vision: blurring, DENIES: acuity ENMT Ears: DENIES: drainage, erythema Hearing: DENIES: hearing loss Balance: DENIES: ataxia, falling to one side Sinuses: DENIES: congestion, pain Nose: DENIES: nosebleeds, pain Mouth/Throat: DENIES: painful swallowing, sore throat Teeth: DENIES: pain Jaw: DENIES: pain Cardiovascular Cardiac: DENIES: chest pain, dyspnea on exertion Rhythm/Rate: DENIES: irregular beat, palpitations Vascular: DENIES: pedal edema, unilateral swelling Pulmonary Respiratory: DENIES: cough, dyspnea, pleuritic chest pain, sputum GI Upper Abdomen: DENIES: nausea, pain, vomiting Lower Abdomen: DENIES: diarrhea, pain General: DENIES: dysuria, frequency Musculoskeletal General: DENIES: joint pain, tenderness Integumentary Skin: DENIES: itching, rash Neurological General: DENIES: change in strength, headache, numbness, weakness Psychiatric Psychiatric: DENIES: emotional instability, suicidal ideation/attempt Endocrine Endocrine: DENIES: polydipsia, polyphagia Hematologic/Lymphatic Hematologic/Lymphatic: DENIES: frequent nosebleeds, lymphadenopathy Allergic/Immunological Allergic/Immunoligical: DENIES: allergic reactions, hives Physical Exam General General Nourishment: well nourished, well developed, appears stated age, no acute distress, adult General Body Habitus: well groomed Vitals and Pain First Documented Vital Signs Date Time Temp Pulse Resp B/P Pulse Ox O2 Delivery O2 Flow Rate FiO2 12/26/16 17:16 97.1 76 18 121/72 93 Room Air Weight: Kilograms: 90.400 Height (feet): 5 Height (inches): 5.00 Triage Pain Scale: RN VS reviewed by Provider: Yes Normal Exams: Head: Normocephalic w/o trauma Eyes: Pupils are PERRLA w/ EOMI, No scleral icterus, irritation, or foreign bodies noted ENMT: No facial trauma, nasal exudates, pharyngeal erythema, or exudates are noted Dental: No fractured, loose, or missing teeth noted Neck: Full range of motion, without adenopathy, JVD, bruits or thyromegaly Chest/Resp: Clear all mercado, with good airflow, and symmetry bilaterally CV: Regular rate and rhythm, without murmur or gallop, Pulses 2+ all extremities, capillary refill, <2 seconds all ext., no pedal edema noted Abdomen: Bowel sounds positive, soft, non-tender, non-distended, no hepatosplenomegaly, masses or bruits noted Lymphatic: No lymphadenopathy, or lymphedema noted Musculoskeletal: No tenderness, or deformity noted, good range of motion, all extremities Integumentary: No rashes, hives, or bruising noted, hair and nails, without abnormality Neurologic: Patient is alert, and oriented, cranial nerves, motor/sensory/ cerebellar, exams w/o gross deficits, to observation Psychiatric: Patient exhibits, appropriate attention, emotion and affect Neurologic (brief) Comments Alert and oriented and x 4. CN 2-12 intact. Normal sensation. Normal motor. Normal coordination. Normal gait. Normal strength. Absent Babinski bilaterally. Reflexes 2/4 in all extremities. No focal neurologic deficit. Unremarkable neurologic examination. 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 18:21 LAB 12/26/16 Complete Qualitative, Urine 18:21 Normal Saline (Ns) PHA 12/26/16 Complete 19:15 Lab Results Laboratory Tests Test 12/26/16 18:53 12/26/16 19:15 White Blood Count 6.4T/MM3 Red Blood Count 4.58M/MM3 Hemoglobin 13.9GM/DL Hematocrit 41.3% Mean Corpuscular Volume 90.2UM3 Mean Corpuscular Hemoglobin 30.3UUG Mean Corpuscular Hemoglobin Concent 33.7GM/DL RDW Standard Deviation 40.5FL Platelet Count 295T/MM3 Mean Platelet Volume 10.0UM3 Immature Granulocyte % (Auto) 0.2% Neutrophils (%) (Auto) 64.9% Lymphocytes (%) (Auto) 25.5% Monocytes (%) (Auto) 6.4% Eosinophils (%) (Auto) 2.5% Basophils (%) (Auto) 0.5% Absolute Immature Granulocyte (auto 0.01T/MM3 Absolute Neutrophils (auto) 4.2T/MM3 Absolute Lymphocytes (auto) 1.6T/MM3 Absolute Monocytes (auto) 0.4T/MM3 Absolute Eosinophils (auto) 0.2T/MM3 Absolute Basophils (auto) 0.0T/MM3 Turbidity < 20 Sodium Level 145MEQ/L Potassium Level 4.1MEQ/L Chloride Level 103MEQ/L Carbon Dioxide Level 29MEQ/L Anion Gap 13MEQ/L Blood Urea Nitrogen 11.0MG/DL Creatinine 0.7MG/DL Glomerular Filtration Rate Calc 87 BUN/Creatinine Ratio 16RATIO Glucose Level 105MG/DL Calculated Osmolality 278MOSM/KG Calcium Level 9.8MG/DL Total Bilirubin 0.40MG/DL Icterus Index < 2 Aspartate Amino Transf (AST/SGOT) 15U/L Alanine Aminotransferase (ALT/SGPT) 38U/L Alkaline Phosphatase 106U/L Troponin I < 0.012ng/ml Total Protein 7.3G/DL Albumin 4.3G/DL Globulin 3.0G/DL Albumin/Globulin Ratio 1.4RATIO Chemistry Specimen Hemolysis < 15 Urine Collection Type Cleancatch-midstream Urine Color Yellow Urine Turbidity Clear Urine pH 5.5 Urine Specific [place] 1.010 Urine Protein Negative Urine Glucose (UA) Negative Urine Ketones Negative Urine Blood Negative Urine Nitrite Negative Urine Bilirubin Negative Urine Urobilinogen 0.2EU/DL Urine Leukocyte Esterase Negative Urinalysis Comment Microscopic not ind. Urine Test Negative Medications Current ED Medications Sodium Chloride (NS) 500 ml @ 999 mls/hr Q31M ONCE IV Last administered on t 19:45; Start 12/26/16 at 19:15; Stop 12/26/16 at 19:45; Status DC Progress Progress Labs / imaging were discussed in detail with the patient and family and questions are answered. Patient is given gentle IV hydration. Patient symptoms have been present for 10 days without change in nature or characteristic. Patient has an unremarkable workup in the emergency department. Patient is discussed with her primary care physician Dr. Jean who is in agreement with the current plan of management and close outpatient follow-up is obtained for the patient. Patient is in agreement with the current plan of management. She is discharged home in improved condition. She is to follow up as instructed. She is to return to the emergency Department if her condition worsens or changes in any manner. EKG EKG : Rate: <60 Rhythm: sinus Center Point: normal QRS: LBBB ST/T: normal (EKG unchanged from 05/09/11.) Interpreted by: signing physician Xray Xray : Xray: CXR Portable Interpretation: Normal, Interpreted by Me CT CT : CT: Head no contrast Interpretation: Normal, Faxed Report VIELKA FERRARO DO Dec 26, 2016 18:55
[2016-12-26 18:58] LABS: BASOPHILS % (AUTO) 0.5 % (0-2); EOSINOPHILS # (AUTO) 0.2 T/MM3 (0-0.5); EOSINOPHILS % (AUTO) 2.5 % (0-4); HCT - HEMATOCRIT 41.3 % (36-46); HGB - HEMOGLOBIN 13.9 GM/DL (12-16); IMMATURE GRANULOCYTE # (AUTO) 0.01 T/MM3 (0.00-0.03); IMMATURE GRANULOCYTE % (AUTO) 0.2 % (0.0-0.5); LYMPHOCYTES # (AUTO) 1.6 T/MM3 (1-4.8); LYMPHOCYTES % (AUTO) 25.5 % (23-45); MEAN CORPUSCULAR HGB 30.3 UUG (26-34); MEAN CORPUSCULAR HGB CONC(MCHC 33.7 GM/DL (31-37); MEAN CORPUSCULAR VOLUME 90.2 UM3 (80-100); MONOCYTES # (AUTO) 0.4 T/MM3 (0-0.8); MONOCYTES % (AUTO) 6.4 % (0-9.0); NEUTROPHILS #(AUTO)-ABSOLUTE 4.2 T/MM3 (1.8-7.7); NEUTROPHILS % (AUTO) 64.9 % (33-66); RED BLOOD COUNT 4.58 M/MM3 (4.00-5.20); WBC - WHITE BLOOD COUNT 6.4 T/MM3 (4.5-11.0)
[2016-12-26] MEDS ORDERED: NORMAL SALINE 500 ML IV ONE (19:15)
[2016-12-26 19:16] LABS: ALBUMIN 4.3 G/DL (3.5-5.0); ALBUMIN/GLOBULIN RATIO 1.4 RATIO (1.1-2.2); ALKALINE PHOSPHATASE 106 U/L (38-126); ALT (SGPT) 38 U/L (9-52); ANION GAP 13 MEQ/L (5-15); AST (SGOT) 15 U/L (14-36); BUN/CREATININE RATIO 16 RATIO (6-26); CALCIUM 9.8 MG/DL (8.4-10.2); CHLORIDE 103 MEQ/L (98-107); CO2 - CARBON DIOXIDE 29 MEQ/L (22-30); CREATININE 0.7 MG/DL (0.7-1.2); GLOMERULAR FILTRATION RATE 87; GLUCOSE 105 MG/DL (65-110); POTASSIUM 4.1 MEQ/L (3.6-5); SODIUM 145 MEQ/L (134-144); TOTAL PROTEIN 7.3 G/DL (6.3-8.2)
[2016-12-26 19:39] LABS: BLOOD, URINE NEGATIVE (NEGATIVE); COLOR,URINE YELLOW (YELLOW); LEUKOCYTE ESTERASE ,URINE NEGATIVE (NEGATIVE); NITRITE,URINE NEGATIVE (NEGATIVE); UROBILINOGEN,URINE 0.2 EU/DL (NORMAL)
[2016-12-26 20:15] VITALS: BP 115/71; PULSE 73; RESP 16; TEMP 97.1; O2SAT 95
--- NOTE | 2016-12-27 08:34 | DI ---
Indication: ITS.REASON: cough PROCEDURE: CHEST 1 VIEW: Encounter: Initial Comparison: November 29, 2010 FINDINGS: The lungs are clear. There is no abnormal airspace opacity, pleural effusion or pneumothorax identified. The heart size, pulmonary vasculature and mediastinum are within normal limits. No significant skeletal abnormality is seen. IMPRESSION: No acute cardiopulmonary abnormality. .
--- NOTE | 2016-12-27 08:36 | DI ---
Indication: ITS.REASON: light headed PROCEDURE: CT HEAD W/O CONTRAST: Encounter: Initial Comparison: Brain MRI dated May 02, [address] dated May 09, 2011 Technique: Axial CT images through the head were performed without contrast. Iterative Reconstruction dose reducing technique was utilized. FINDINGS: The ventricles are of normal size, shape, and contour for the patient's age. The brainstem, cerebellum, and cerebral hemispheres have a normal morphology and CT attenuation. There is no evidence of midline displacement. No hemorrhage, signs of acute territorial stroke, mass effect, mass lesions, or edema is evident. The visualized portions of the skull base, midface, and calvarium demonstrate no abnormality. The paranasal sinuses are well aerated and free of significant disease. The tympanic and mastoid cavities appear normal. IMPRESSION: No acute intracranial abnormality or hemorrhage. There is a preliminary report by [facility]. .
== END 2016-12-26 20:15 | disposition home or self-care (01) ==
LOC: ED 17:14
DX: H53.8 Other visual disturbances (principal); R42 Dizziness and giddiness; R53.81 Other malaise
CPT/HCPCS: 36000; 36415; 80053; 81003; 81025; 84484; 85025; 93005